=== PATIENT | female | born 1965 | race Caucasian/White ===

== ENCOUNTER 2018-04-03 11:03 | Emergency (ER) | payer BC ==
[2018-04-03] MEDS ORDERED: 0.9 % SODIUM CHLORIDE 1,000 ML BAG IV ONE (11:34)
--- NOTE | 2018-04-03 11:45 | Emergency Department Record ---
History of Present Illness - General Chief Complaint: Headache Migraine Stated Complaint: HEADACHE Time Seen by Provider: 04/03/18 11:07 Source: Patient Mode of Arrival: Ambulatory Limitations: No limitations - History of Present Illness Initial Comments: pt has had an intermittant headache for a week along with body aches. she was seen at [facility] and dxd w sinusitis this am. abx were ordered. pts traffic rate analyst then called her and told her to go the ED because he didnt believe it was sinusitis and thought she should have a head ct. she had ecoli in her urine in january Complaint: Headache Onset/Timin -: Week(s) Onset Description: Gradual Location: Diffuse Severity: Moderate Severity scale (1-10): 7 Quality: Aching Consistency: Intermittent Improves With: Medication Worsens With: None - Related Data Allergies Allergy/AdvReac Type Severity Reaction Status Date / Time diphenhydramine HCl Allergy Mild hives Unverified 04/03/18 09:31 [From Benadryl] bee pollen Allergy ANAPHYLAXIS Unverified 12/29/16 11:11 egg Allergy HIVES Unverified 12/29/16 11:11 Egg Derived Allergy HIVES Unverified 12/29/16 11:11 Travel Screening - Travel/Exposure Within Last 30 Days Have you traveled within the last 30 days?: No - Travel/Exposure Within Last Year Have you traveled outside the [place] in the last year?: No - Additonal Travel Details Have you been exposed to anyone with a communicable illness?: No - Travel Symptoms Symptom Screening: None Review of Systems Reviewed: No additional complaints except as noted below Constitutional: Reports: As per HPI. Denies: Chills, Fever, Malaise, Night sweats, Weakness, Weight change Eyes: Reports: As per HPI. Denies: Eye discharge, Eye pain, Photophobia, Vision change ENT: Reports: As per HPI. Denies: Congestion, Dental pain, Ear pain, Epistaxis , Hearing loss, Throat pain Respiratory: Reports: As per HPI. Denies: Cough, Dyspnea, Hemoptysis, Stridor, Wheezes Cardiovascular: Reports: As per HPI. Denies: Arrhythmia, Chest pain, Dyspnea on exertion, Edema, Murmurs, Orthopnea, Palpitations, Paroxysmal nocturnal dyspnea, Rheumatic Fever, Syncope Endocrine: Reports: As per HPI. Denies: Fatigue, Heat or cold intolerance, Polydipsia, Polyuria Gastrointestinal: Reports: As per HPI. Denies: Abdominal pain, Constipation, Diarrhea, Hematemesis, Hematochezia, Melena, Nausea, Vomiting Genitourinary: Reports: As per HPI. Denies: Abnormal menses, Discharge, Dyspareunia, Dysuria, Frequency, Hematuria, Incontinence, Retention, Urgency Musculoskeletal: Reports: As per HPI. Denies: Arthralgia, Back pain, Gout, Joint swelling, Myalgia, Neck pain Skin: Reports: As per HPI. Denies: Bruising, Change in color, Change in hair/ nails, Lesions, Pruritus, Rash Neurological: Reports: As per HPI. Denies: Abnormal gait, Confusion, Headache, Numbness, Paresthesias, Seizure, Tingling, Tremors, Vertigo, Weakness Psychiatric: Reports: As per HPI. Denies: Anxiety, Auditory hallucinations, Depression, Homicidal thoughts, Suicidal thoughts, Visual hallucinations Hematological/Lymphatic: Reports: As per HPI. Denies: Anemia, Blood Clots, Easy bleeding, Easy bruising, Swollen glands Past Medical History - SOCIAL HISTORY Smoking Status: Never smoker Alcohol Use: None Drug Use: None - RESPIRATORY Hx Respiratory Disorders: Yes Hx Asthma: Yes - CARDIOVASCULAR Hx Cardio Disorders: No - NEURO Hx Neuro Disorders: No - GI Hx GI Disorders: No - Hx Genitourinary Disorders: No - ENDOCRINE Hx Endocrine Disorders: Yes Hx Diabetes: No Hx Thyroid Disease: Yes - MUSCULOSKELETAL Hx Musculoskeletal Disorders: Yes Hx Arthritis: Yes Comment:: retinal uvitis - PSYCH Hx Psych Problems: Yes Hx Anxiety: Yes Hx Depression: Yes Comment:: Bi polar - HEMATOLOGY/ONCOLOGY Hx Hematology/Oncology Disorders: No Family Medical History Any Significant Family History?: No Hx Alcohol Use: Father Hx Cancer: Father Hx Diabetes: Grandparents Hx HTN: Mother, Brother/Sister Hx Stroke: Grandparents Physical Exam - General General Appearance: Alert, Oriented x3, Cooperative, Mild distress - Head Head exam: Normal inspection - Eye Eye exam: Normal appearance, PERRL, EOMI Pupils: Normal accommodation - ENT ENT exam: Normal exam, Mucous membranes moist, Normal external ear exam, Normal orophraynx, TM's normal bilaterally Ear exam: Normal external inspection. negative: External canal tenderness Nasal Exam: Normal inspection. negative: Discharge, Sinus tenderness Mouth exam: Normal external inspection, Tongue normal Teeth exam: Normal inspection. negative: Dental caries Throat exam: Normal inspection. negative: Tonsillar erythema, Tonsillar exudate - Neck Neck exam: Normal inspection, Full ROM. negative: Tenderness - Respiratory Respiratory exam: Normal lung sounds bilaterally. negative: Respiratory distress - Cardiovascular Cardiovascular Exam: Regular rate, Normal rhythm, Normal heart sounds - GI/Abdominal GI/Abdominal exam: Soft, Normal bowel sounds. negative: Tenderness - Rectal Rectal exam: Deferred - exam: Deferred - Extremities Extremities exam: Normal inspection, Full ROM, Normal capillary refill. negative: Tenderness - Back Back exam: Reports: Normal inspection, Full ROM. Denies: Muscle spasm, Rash noted, Tenderness - Neurological Neurological exam: Alert, Normal gait, Oriented X3, Reflexes normal - Psychiatric Psychiatric exam: Normal affect, Normal mood - Skin Skin exam: Dry, Intact, Normal color, Warm Course Vital Signs 04/03/18 11:05 Temperature 98.2 F Pulse Rate 63 Respiratory 18 Rate Blood Pressure 135/77 Pulse Ox 97 - Reevaluation(s) Reevaluation #1: 04/03/18 13:22 pt did well Medical Decision Making - Lab Data Result diagrams: 04/03/18 11:48 04/03/18 11:48 Disposition Disposition: Discharge Clinical Impression: Headache Qualifiers: Headache type: unspecified Headache chronicity pattern: acute headache Intractability: not intractable Qualified Code(s): R51 - Headache Disposition: Home, Self-Care Condition: (1) Good Instructions: Acute Headache (ED) Additional Instructions: follow up with neurologist. return sooner if worse. Forms: Patient Portal Access Quality - Quality Measures Quality Measures: N/A - Blood Pressure Screening Does Patient Have Any of the Following: No Blood Pressure Classification: Pre-Hypertensive BP Reading Systolic Measurement: 135 Diastolic Measurement: 77 Screening for High Blood Pressure: < Pre-Hypertensive BP, F/U Documented > [ [id number]] Pre-Hypertensive Follow-up Interventions: Follow-up with rescreen every year.
[2018-04-03 11:56] LABS: BASO % 0.3 % (0-6); EOS % 0.5 % (0-6); HEMATOCRIT 42.6 % (35.0-47.0); HEMOGLOBIN 14.7 gm/dl (11.6-16.0); MEAN CELL VOLUME 93.4 fl (81-97); MEAN CORPUSCULAR HEMOGLOBIN 32.2 pg (27-33); MEAN CORPUSCULAR HGB CONC 34.5 g/dl (32-36); MEAN PLATELET VOLUME 10.1 fl (7.4-10.4); PLATELET COUNT 222 K/uL (130-400); RED BLOOD COUNT 4.56 M/uL (3.80-5.40); RED CELL DISTRIBUTION WIDTH 13.7 % (11.5-14.5); WHITE BLOOD COUNT W/O DIFF 6.3 K/uL (4.2-12.2)
[2018-04-03 12:05] LABS: BLOOD UREA NITROGEN 14 mg/dL (6-20); CREATININE 0.8 mg/dL (0.5-0.9); EST GLOMERULAR FILTRATION RATE > 60 mL/min
[2018-04-03 12:06] LABS: TOTAL PROTEIN 6.9 g/dL (6.6-8.7)
[2018-04-03 12:08] LABS: GLUCOSE,RANDOM 114 mg/dL (74-109)
[2018-04-03 12:11] LABS: ALBUMIN 4.6 g/dL (4.0-5.0); ALKALINE PHOSPHATASE 66 U/L (35-104); ALT/SGPT 34 U/L (<33); AST/SGOT 25 U/L (10.0-35.0); C-REACTIVE PROTEIN 0.87 mg/dL (<0.5); CREATINE PHOSPHOKINASE 48 U/L (26-192)
[2018-04-03 12:57] LABS: ERYTHROCYTE SEDIMENTATION RATE 9 mm/hr (0-30)
--- NOTE | 2018-04-04 09:11 | CT SCAN REPORT ---
EXAM: EMERGENCY CT SCAN OF THE HEAD WITHOUT CONTRAST HISTORY: FRONTAL HEADACHE. TECHNIQUE: Axial CT scan of the head was performed without IV contrast. Comparison: None. FINDINGS: No definite acute intracranial hemorrhage identified. No focal mass effect or midline shift apparent. No definite acute infarct or intracranial mass lesion seen. The visualized paranasal sinuses and mastoids all appear essentially clear. The etiology of the patient's headaches not clear from this study. If neurologic symptoms persist, follow-up brain MRI may be useful for further evaluation if not contraindicated. IMPRESSION: THE NONCONTRAST HEAD CT APPEARS ESSENTIALLY NEGATIVE DESCRIBED ABOVE. JOB NUMBER: [id number] [facility]
== END 2018-04-03 13:29 | disposition home or self-care (01) ==
LOC: ER 11:03
DX: R51 Headache (principal); M79.1 Myalgia
CPT/HCPCS: 70450; 80053; 82550; 85027; 85651; 86140; 99284; J7030